=== PATIENT | female | born 1985 | race Caucasian/White ===

== ENCOUNTER 2021-11-25 12:37 | Emergency (ER) | payer BC | END 2021-11-25 13:09 | disposition home or self-care (01) | LOC: MW.ED 12:37 | DX: B34.9 Viral infection, unspecified (principal); Z72.0 Tobacco use | CPT/HCPCS: 99283 ==

== ENCOUNTER 2022-01-24 18:05 | Emergency (ER) | payer BC ==
[2022-01-24] MEDS ORDERED: Sodium Chloride 0.9% 10 ML Syringe FLUSH PRN (21:17)
[2022-01-24] MEDS ORDERED: Ondansetron 4 MG/2 ML SDV IVPUSH ONE (21:17)
[2022-01-24] MEDS ORDERED: Sodium Chloride 0.9% 2.5 ML Syringe FLUSH PRN (21:17)
[2022-01-24] MEDS ORDERED: Sodium Chloride 0.9% 1,000 ML IV ONE (21:17)
[2022-01-24] MEDS ORDERED: Ketorolac 30 MG/ML SDV IVPUSH ONE (21:17)
[2022-01-24 21:37] LABS: BLOOD UREA NITROGEN,BUN 12 mg/dL (7.0-18.0); CARBON DIOXIDE,CO2 26.3 mmol/L (21.0-32.0); CHLORIDE,CL 104 mmol/L (98-107); GLUCOSE RANDOM 93 mg/dL (74-106); POTASSIUM,K 3.7 mmol/L (3.5-5.1); SODIUM,NA 140 mmol/L (136-145)
[2022-01-24] MEDS ORDERED: fentaNYL 50 MCG/ML SDV IVPUSH ONE (22:38)
[2022-01-24] MEDS ORDERED: Ciprofloxacin 500 MG Tab PO ONE (22:43)
[2022-01-24] MEDS ORDERED: metroNIDAZOLE 250 MG Tab PO ONE (22:43)
== END 2022-01-24 23:20 | disposition home or self-care (01) ==
LOC: MW.ED 18:05
DX: K57.32 Diverticulitis of large intestine without perforation or abscess without bleeding (principal)
CPT/HCPCS: 36415; 74176; 80053; 81001; 81025; 85025; 96374; 96375; 99284; A9270; J1885; J2405; J3010; J7030

== ENCOUNTER 2022-02-05 12:35 | Emergency (ER) | payer BC ==
[2022-02-05] MEDS ORDERED: Ondansetron 4 MG/2 ML SDV IVPUSH ONE (13:44)
[2022-02-05] MEDS ORDERED: Morphine 4 MG/ML VIAL IVPUSH ONE (13:44)
[2022-02-05] MEDS ORDERED: Sodium Chloride 0.9% 1,000 ML IV ONE (13:44)
[2022-02-05 14:36] LABS: BLOOD UREA NITROGEN,BUN 11 mg/dL (7.0-18.0); CARBON DIOXIDE,CO2 23.4 mmol/L (21.0-32.0); CHLORIDE,CL 102 mmol/L (98-107); GLUCOSE RANDOM 79 mg/dL (74-106); SODIUM,NA 137 mmol/L (136-145)
[2022-02-05] MEDS ORDERED: Iopamidol 755 MG/ML 500 ML Multipack Bottle IVPUSH STA (15:50)
== END 2022-02-05 17:13 | disposition home or self-care (01) ==
LOC: MW.ED 12:35
DX: K57.32 Diverticulitis of large intestine without perforation or abscess without bleeding (principal); Z20.822 Contact with and (suspected) exposure to COVID-19; Z79.899 Other long term (current) drug therapy
CPT/HCPCS: 36415; 74177; 80053; 81003; 81025; 85025; 87635; 96374; 96375; 99284; J2270; J2405; J7030; Q9967; 99283; U0002